=== PATIENT | female | born 1945 | race Caucasian/White ===

== ENCOUNTER 2016-10-30 13:04 | Emergency (ER) | payer MEDICARE ==
[~2016-10-30] VITALS: Ht 157.5 cm; Wt 47.7 kg
[2016-10-30 13:16] VITALS: BP 153/75; PULSE 115; RESP 24; O2SAT 99
--- NOTE | 2016-10-30 13:17 | ED.REPORT ---
HPI-Chest Pain 40 and Over Date of Service Oct 30, 2016 ED Provider: The patient is a 71 year old female with history of diabetes mellitus, hypertension, esophageal stricture, and GERD who presents to the emergency department by EMS for left arm numbness and pain that began about 1 hour ago after she started eating. She also noticed some nausea. She has experienced nausea and difficulty swallowing in the past but she has never noticed any symptoms in her arms. She denies chest pain, shortness of breath, vomiting. She took 81 mg at home and was given 12.5 mg promethazine, baby aspirin x3, and nitroglycerin x2 by medics. Nursing Notes Stated Complaint: CHEST PAIN Chief Complaint: Dysrhythmia/Cardiac Nursing Notes Reviewed: Yes Allergies: Coded Allergies: gatifloxacin (Verified Allergy, Intermediate, seizure, 10/30/16) Scheduled Magnesium Chloride (Slow-Mag) 64 Mg Tablet 64 MG PO DAILY General Time Seen by MD: 13:16 Chief Complaint Other (left arm pain and numbness) Hx Obtained From: Patient, EMS Arrived By: Ambulance Sudden in Onset?: Yes Onset Occurred: 1 - 4 hours ago Symptom Duration: Since onset Quality: Painful (and numb) Severity: Current: Moderate Severity: Maximum: Severe Recent Healthcare: No recent doctor visit, No recent hospitalization Similar Sx Previous: No Past Medical History Past Medical History Hypertension Diabetes mellitus GERD Depression Esophageal stricture Past Surgical History None reported Family History Noncontributory Smoking History Unknown if Ever Smoker Social History Alcohol Use: Denies alcohol use Drug Use: Denies drug use Other Social History: Good social support, , Local resident Ambulatory Status Independent Review of Systems Respiratory: Denies: Shortness of breath Cardiovascular: Denies: Chest pain GI: Reports: Dysphagia, Nausea, Denies: Vomiting Musculoskeletal: Reports: Extremity pain Complete sys rev & neg: except as marked. Physical Exam Initial Vital Signs Vital Signs (First) Date Time Temp Pulse Resp B/P Pulse Ox O2 Delivery O2 Flow Rate FiO2 10/30/16 13:16 36.7 115 24 153/75 99 Room Air Initial VS: Reviewed Head / Eyes: Atraumatic, Normocephalic, PERRL ENT: Mucous membranes moist, Conjunctiva normal, No scleral icterus Neck: Supple, Non-tender, Full range of motion Lymphatic: No lymphadenopathy Extremities: Vascular intact, Neuro intact, No swelling, No tenderness Skin: Warm, Dry, No cyanosis Neurologic: Alert, Oriented, Nonfocal Psychiatric: Mood/affect normal, Behavior normal, Normal thought content General/Constitutional: Awake, Alert, Cooperative Appears to be in some distress Respiratory / Chest: Atraumatic, Breath sounds NL, Breath sounds = bilat, No respiratory distress, No rales, No rhonchi, No wheezing, No stridor, No chest tenderness Cardiovascular: Heart rate NL, Regular rhythm, Heart sounds NL, No gallop, No murmurs, No rubs, Peripheral circulation NL, Pulses = bilaterally, No gross BP differential Abdomen: Atraumatic, Soft, Non-tender, McBurney's non-tender, No guarding, No rebound, BS normoactive, No distention, No hernia, No palpable mass Interpretation & Diagnostics Lab Results Interpretation Result Diagram: 10/30/16 1318 10/30/16 1318 Test 10/30/16 13:18 10/30/16 15:24 White Blood Count 14.7th/mm3 (3.8-10.1) Red Blood Count 4.40mil/mm3 (3.90-5.20) Hemoglobin 13.5g/dL (12.0-15.6) Hematocrit 39.7% (35.0-46.0) Mean Corpuscular Volume 90.2fL (81-100) Mean Corpuscular Hemoglobin 30.7pg (27.0-35.0) Mean Corpuscular Hemoglobin Concent 34.0% (32.0-37.0) Red Cell Distribution Width 12.3% (12.3-15.4) Platelet Count 565bil/L (150-400) Neutrophils (%) (Auto) 68.5% (40-74) Lymphocytes (%) (Auto) 18.7% (14-46) Monocytes (%) (Auto) 7.6% (4-12) Eosinophils (%) (Auto) 2.7% (0-5) Basophils (%) (Auto) 0.5% (0-3) Prothrombin Time 9.7sec (8.1-12.5) Prothromb Time International Ratio 0.91ratio Activated Partial Thromboplast Time 19.8sec (22.8-33.0) D-Dimer 12.9mg/L (<0.50) Sodium Level 133mEq/L (134-144) Potassium Level 5.0mEq/L (3.5-5.2) Chloride Level 93mEq/L (97-108) Carbon Dioxide Level 25mmol/L (18-29) Blood Urea Nitrogen 16mg/dL (8-27) Creatinine 0.80mg/dL (0.57-1.00) Estimat Glomerular Filtration Rate 101mL/min (>59) Glucose Level 301mg/dL (60-99) Calcium Level 9.1mg/dL (8.5-10.1) Magnesium Level 1.4mg/dL (1.6-2.6) Total Bilirubin 0.3mg/dL (0.0-1.2) Aspartate Amino Transf (AST/SGOT) 41U/L (0-50) Alanine Aminotransferase (ALT/SGPT) 24U/L (0-32) Alkaline Phosphatase 177U/L (25-165) Total Protein 7.7g/dL (6.4-8.4) Albumin 3.5g/dL (3.4-5.0) Troponin T < 0.010ug/L (0.0-0.011) ECG Interpretation ECG Interpretation: Sinus tachycardia Hyper acute T waves anteriorly Time: 13:22 Interpreted by: ED physician ECG Interpretation: Unchanged Time: 14:30 Interpreted by: ED physician X-Ray Chest Interpretation Chest Xray Interpretation: IMPRESSION: No acute cardiopulmonary disease. Dictated by: Giovanni Dupree [facility] Interpreted: Alfredo Rosado MD on 10/30/2016 at 14:52 Interpretation / Wet Read by: Interpret - Radiologist CT Chest Interpretation IMPRESSION: No pulmonary embolus seen, no underlying pneumonia identified. Dictated by: Alfredo Rosado M.D. on 10/30/2016 at 15:55 Study type: CT pulm angiogram Interpretation / Wet Read by: Interpret - Radiologist Re-Eval/Medical Decision Med Decision/Clinical Course Patient presents with a vague constellation of symptoms it does not seem like acute coronary syndrome, there is no evidence of pulmonary embolism, no evidence of stroke, at one point the patient had a nonreproducible paresthesia of the left arm which was also present in the right arm without associated motor weakness or other pathology. She ambulated independently in the ER, this does not fit the description of ischemic stroke. Her magnesium and sodium which fits with a recent diarrheal illness, she will be discharged on magnesium supplementation. Return and follow-up precautions are given. Source of Hx: Old records, EMS, Family Time of Eval: 14:10 Re-Evaluation/Progress Note: She is feeling better. Time of Eval: 14:12 Re-Evaluation/Progress Note: ED nurse reports the patient is now complaining of right hand numbness. Time of Eval: 14:45 Re-Evaluation/Progress Note: She says she has had some sort of a diarrheal illness for the last 4 days and has not been eating or drinking normally. Time of Eval: 16:00 Re-Evaluation/Progress Note: Rechecked the patient. Discussed plan for discharge. All questions were addressed. Counseled Regarding: Diagnosis, Lab results, Need for follow-up, When/why to return to ED Discharge & Departure Primary Impression: Nonspecific chest pain Disposition: Home Discharge Condition All VS Reviewed: Yes Condition: Stable Additional Instructions: Thank you for coming to the emergency department today, we are so sorry that you had these symptoms earlier and are glad you are feeling better. Overall no life-threatening cause of your symptoms can be identified. Magnesium and sodium are low. This may contribute to feeling ill. Begin magnesium supplementation. Follow-up with your regular doctor for further evaluation. Return to ER immediately if you develop recurrent chest pain concerning for heart attack, focal numbness or weakness concerning for stroke, or any other concerns. Referrals: Jennifer Torrez MD (PCP) Scribe Attestation Portions of this note were transcribed by Olivia Peña. I, Dr. Green personally performed the history, physical exam and medical decision-making; I reviewed and confirmed the accuracy of the information in the transcribed note. Signed by: Coleen Davis, 10/30/2016 and 1620. copies to: Jennifer Torrez MD, Timothy S DO Oct 30, 2016 13:17 Olivia Peña Oct 30, 2016 13:26
[2016-10-30 13:22] LABS: BASOPHILS % (AUTO) 0.5 % (0-3); EOSINOPHILS % (AUTO) 2.7 % (0-5); MONOCYTES % (AUTO) 7.6 % (4-12); Mean Corpuscular Hemoglobin 30.7 pg (27.0-35.0); Mean Corpuscular Volume 90.2 fL (81-100); NEUTROPHILS % (AUTO) 68.5 % (40-74); Platelet Count 565 bil/L (150-400)
[2016-10-30] MEDS ORDERED: Ondansetron 2 mg/mL 2 mL Inj IVPUSH PRN (13:30)
[2016-10-30] MEDS ORDERED: Alum-Mag Hydrox-Simeth 30 mL Suspension PO ONE (13:30)
[2016-10-30 13:40] LABS: INR 0.91 ratio
[2016-10-30 13:47] LABS: Magnesium 1.4 mg/dL (1.6-2.6)
[2016-10-30 13:49] LABS: TROPONIN T < 0.010 ug/L (0.0-0.011)
[2016-10-30 14:16] VITALS: BP 125/59; PULSE 106; RESP 16; O2SAT 98
[2016-10-30] MEDS ORDERED: Magnesium Sulf 4 Gm/100 mL H2O 4 GM in IV Premix 1 EACH IV ONE (14:20)
--- NOTE | 2016-10-30 14:53 | DRSVH ---
PROCEDURE: X-RAY CHEST ONE VIEW, PORTABLE ([id number]) INDICATIONS: Chest pain TECHNIQUE: One view of the chest was acquired. COMPARISON: None. FINDINGS: Surgical changes and devices: None. Lungs and pleura: No pleural effusions or pneumothorax. Lungs are clear. Mediastinum: Mediastinal contours appear normal. Heart size is normal. Bones and chest wall: No suspicious bony lesions. Overlying soft tissues appear unremarkable. IMPRESSION: No acute cardiopulmonary disease. Dictated by: Giovanni Dupree [facility] Interpreted: Alfredo Rosado MD on 10/30/2016 at 14:52 Transcribed by: HERMELINDA on 10/30/2016 at 14:52 Approved by: Alfredo Rosado M.D. on 10/31/2016 at 2:08
--- NOTE | 2016-10-30 15:57 | DRSVH ---
PROCEDURE: CT ANGIO CHEST PULMONARY EMBOLISM ([id number]) INDICATIONS: Possible pulmonary embolus, elevated ddimer TECHNIQUE: After the administration of intravenous contrast, 2 mm thick sections acquired from the pulmonary api janelle to the posterior costophrenic angles. 3-dimensional maximum intensity projection (MIP) coronal a nd sagittal reformats were then acquired through the thorax. For radiation dose reduction, the follo wing was used: automated exposure control, adjustment of mA and/or kV according to patient size. COMPARISON: None. FINDINGS: Image quality: Excellent. Pulmonary arteries: Pulmonary arteries are normal in size, and demonstrate no intraluminal filling d efects to suggest central pulmonary embolism. Lungs and pleura: Lungs are clear. No pleural effusions or pneumothorax. Central and peripheral ai rways are patent. Mediastinum: Heart size is normal, without pericardial effusion. No mediastinal or hilar adenopathy . Thoracic aorta is normal in caliber and enhancement. Esophagus is normal in caliber, without hiat al hernia. Bones and chest wall: No suspicious bony lesions. Ribs and thoracic spine appear intact throughout. Thyroid gland appears normal where well visualized. No axillary or supraclavicular adenopathy. Abdomen: Visualized upper abdominal solid organs appear normal in the early arterial phase of enhanc ement. IMPRESSION: No pulmonary embolus seen, no underlying pneumonia identified. Dictated by: Alfredo Rosado M.D. on 10/30/2016 at 15:55 Approved by: Alfredo Rosado M.D. on 10/30/2016 at 15:56
[2016-10-30] MEDS ORDERED: SLO64 PO (16:08)
[2016-10-30 17:01] VITALS: BP 122/69; PULSE 74; RESP 16
== END 2016-10-30 17:02 | disposition home or self-care (01) ==
LOC: EDBD 13:04 → SED 13:04
DX: R07.9 Chest pain, unspecified (principal); R20.0 Anesthesia of skin; R13.10 Dysphagia, unspecified; R11.0 Nausea; I10 Essential (primary) hypertension; K21.9 Gastro-esophageal reflux disease without esophagitis; E11.9 Type 2 diabetes mellitus without complications; Z88.1 Allergy status to other antibiotic agents
CPT/HCPCS: 36415; 71010; 71275; 80053; 82948; 83735; 84484; 85025; 85379; 85610; 85730; 93005; 96361; 96374; 99285; J3475; Q9967

== ENCOUNTER 2017-03-14 07:17 | Emergency (ER) | payer MEDICARE ==
[~2017-03-14] VITALS: Ht 157.5 cm; Wt 49.1 kg
[~2017-03-14 07:17] MED LIST: SLO64 PO
--- NOTE | 2017-03-14 07:22 | ED.REPORT ---
HPI-Psychiatric Illness Date of Service Mar 14, 2017 ED Provider: Maximo Flores MD Patient is a 71 year old female with a history of depression, hypertension and diabetes who presents to the ED due to stress. She reports that her has cancer, is in the hospital and not expected to live much longer. In the past month, they have been to many different hospitals, which has been rather stressful for the patient. Patient states that she would just like something to help her through the next 3 weeks since they are moving back to [place] and she feels like she's "falling apart' and is having difficulty sleeping. The patient also reports having to deal with her care takers being fired and does not have a place to live in right now. She also reports previous passive suicidal thoughts 3 months ago, where she stopped taking her medications but denies current suicidal ideations. Patient denies fever, vomiting, diarrhea or any recent sickness. Nursing Notes Stated Complaint: POSSIBLE ANXIETY Nursing Notes Reviewed: Yes Allergies: Coded Allergies: gatifloxacin (Verified Allergy, Intermediate, seizure, 10/30/16) Scheduled Amitriptyline (Amitriptyline) 25 Mg Tab 25 MG PO HS Amlodipine (Amlodipine) 10 Mg Tablet 10 MG PO DAILY Atorvastatin (Lipitor) 10 Mg Tab 10 MG PO DAILY Clonidine (Clonidine) 0.1 Mg Tablet 0.1 MG PO BID Colestipol (Colestipol) 1 Gm Tablet 1 GM PO BID Doxepin (Doxepin) 50 Mg Capsule 50 MG PO HS Lisinopril / HCTZ 20-25 mg (Lisinopril / HCTZ 20-25 mg) 1 Each Tablet 1 EACH PO DAILY Magnesium Chloride (Slow-Mag) 64 Mg Tablet 64 MG PO DAILY Metoprolol Tartrate (Metoprolol Tartrate) 100 Mg Tablet 100 MG PO DAILY Sertraline HCl (Sertraline) 20 Mg/1 Ml Oral.conc 50 MG PO DAILY Miscellaneous Medications Ergocalciferol (Vitamin D2) (Vitamin D2) 2,000 Unit Tablet 50,000 UNIT PO Metformin HCl (Metformin HCl ER) 1,000 Mg [id number] 1,000 MG PO General Time Seen by MD: 07:18 Chief Complaint Depressed Hx Obtained From: Patient Arrived By: Walk-in Severity: Current: No pain currently Recent Healthcare: No recent hospitalization, Recent doctor visit Risk-Psychiatric Illness Suicide Risk Stratification Suicide Risk Factors - Adult: No: Alcohol use, Previous attempt, Substance abuse RF Statements: Risk factors reviewed Past Medical History Past Medical History Notes: Medication List from 03/14/17 Iron Colestipol Metformin 400mg BID Lisinopril Zoloft 50mg Metoprolol 100mg 1x Vitamin D Klonopin .1 mg bid Doxepin 50mg Amlodipine 10 Atorvastatin 10mg Amitriptyline 25mg Past Medical History Hypertension Diabetes mellitus GERD Depression Esophageal stricture Past Surgical History Reports: Cholecystectomy Family History Noncontributory Smoking History Unknown if Ever Smoker Social History Alcohol Use: Denies alcohol use Drug Use: Denies drug use Other Social History: , Homeless Ambulatory Status Independent Review of Systems Constitutional: Denies: Chills, Fever Respiratory: Denies: Non-productive cough, Shortness of breath GI: Denies: Abdominal pain, Diarrhea, Vomiting Psychiatric: Reports: Anxiety, Depression, Stress, Denies: Suicidal ideation Complete sys rev & neg: except as marked. Physical Exam Initial Vital Signs Vital Signs (First) Date Time Temp Pulse Resp B/P Pulse Ox O2 Delivery O2 Flow Rate FiO2 03/14/17 07:32 36.4 94 18 171/90 100 Room Air Initial VS: Reviewed General/Constitutional: Awake, Alert, No acute distress Neurologic: Oriented X3, Speech NL, No motor deficits, No sensory deficits Psychiatric: Not suicidal Abnormal Mood/Affect: Positive: Anxious, Depressed Head / Eyes: Atraumatic, Normocephalic, PERRL, EOMI Respiratory / Chest: Atraumatic, No respiratory distress Skin: Atraumatic, Color NL, No rash, Warm, Dry Neck: Atraumatic, Full range of motion Upper Extremity / MS: Atraumatic, Full range of motion Lower Extremity / Pelvis / MS: Atraumatic, Full range of motion Re-Eval/Medical Decision Re-Evaluation/Progress : Time of Eval: 11:25 )( Re-Eval Psychiatric: No danger to self, No danger to others, No suicidal ideation Re-Evaluation/Progress Note: Discussed plan for treatment and discharge. Patient understands and agrees to plan. All questions were addressed. Counseled Regarding: Diagnosis, Lab results, Need for follow-up, When/why to return to ED Discharge & Departure Impression: Primary Impression: Acute situational disturbance )( Condition at Discharge: No danger to self, No danger to others, No suicidal ideation Disposition: Home Patient Instructions: Grief and Loss (ED) Additional Instructions: I am so sorry her has pancreatic cancer. I wish you the best in your attempts to get back to [place]. I think prescribing additional medication right now would be much more likely to harm you than to help you. Perhaps she will get better sleep if you take 2 of the amitriptyline tablets at bedtime. I recommend a 45 minute walk every single day and a helpful diet with mostly vegetables, some fruit and some lean meats. Drink plenty of water and avoid all other beverages. Follow-up at the clinic in 1 week to reassess how you are feeling. Referrals: Jennifer Torrez MD (PCP) Coleen Attestation Portions of this note were transcribed by Nirmala Sainz. I, Dr. Flores personally performed the history, physical exam and medical decision-making; I reviewed and confirmed the accuracy of the information in the transcribed note. Signed by: Coleen Pillai, 03/14/17 and 1141 copies to: Jennifer Torrez MD, Kirk H MD Mar 14, 2017 07:22 Niya Sainz Mar 14, 2017 11:27
[2017-03-14 07:32] VITALS: BP 171/90; PULSE 94; RESP 18; O2SAT 100
[2017-03-14] MEDS ORDERED: CLON0.1T PO (08:11)
[2017-03-14] MEDS ORDERED: METO100T3 PO (08:11)
[2017-03-14] MEDS ORDERED: AMT25T PO (08:11)
[2017-03-14] MEDS ORDERED: DOXE50CA3 PO (08:11)
[2017-03-14] MEDS ORDERED: METF-778 PO (08:11)
[2017-03-14] MEDS ORDERED: AMLO10TA3 PO (08:11)
[2017-03-14] MEDS ORDERED: ATRV10T PO (08:11)
[2017-03-14] MEDS ORDERED: SERT20OR6 PO (08:11)
[2017-03-14] MEDS ORDERED: LISI1TAB11 PO (08:11)
[2017-03-14] MEDS ORDERED: ERGO2000 PO (08:11)
[2017-03-14] MEDS ORDERED: COLE1TAB2 PO (08:11)
== END 2017-03-14 11:38 | disposition home or self-care (01) ==
LOC: SED 07:17
DX: F43.0 Acute stress reaction (principal); I10 Essential (primary) hypertension; E11.9 Type 2 diabetes mellitus without complications; K21.9 Gastro-esophageal reflux disease without esophagitis; F32.9 Major depressive disorder, single episode, unspecified; Z59.0 Homelessness; Z88.1 Allergy status to other antibiotic agents